=== PATIENT | male | born 1945 | race Caucasian/White ===

== ENCOUNTER 2021-11-01 04:20 | Day surgery (SDC) | payer MEDICARE, SELFPAY ==
[2021-10-22 08:49] VITALS: BMI 21.8
--- NOTE | 2021-10-22 09:09 | PC.NURSE ---
Report to the Outpatient Waiting Room, entrance under the green pavilion located off [facility], at time _0630_ on date _11/01/21_. OR Time: _0830_. - You and your visitor will be asked a series of questions to screen for COVID 19 for your protection. - Only one visitor is allowed at this time. - The patient visitor is requested to leave or wait in car when not with patient. - A mask is required within the hospital. Patients may have clear liquids (water, carbonated beverages, clear teas, apple juice) until 3 hours prior to surgery (0530 AM) with a maximum of 20 ounces. - No food from midnight until time of surgery Take the following medications with a SIP of water the morning of surgery: __NONE__ Medications to discontinue per DR. HICKS - ASPIRIN 7 DAYS PRIOR TO SURGERY, Date to take last dose 10/24/21_ Medications to discontinue per ANESTHESIA - MULTIVITAMIN, CORAL CALCIUM 3 DAYS PRIOR TO SURGERY, Date to take last dose 10/28/21_ Please no make-up, nail icelandic, hairspray, perfume, deodorant, or body powder the day of surgery. No jewelry (including any body piercings) or valuables the day of surgery, leave them at home. Please take a shower or bath the night before, or the morning of, surgery with an antibacterial soap. Wear comfortable, loose fitting clothing. - Jewelry must be removed prior to entering the operating room. Rings and piercings that are not removed may be cut off. - The hospital will not accept responsibility for valuables. - Please leave all valuables, including medications, at home the day of surgery. If you are going home after surgery, a licensed class a truck driver must drive you home. - NO public transportation without another adult. - We recommend that an adult stay with you for 24 hours following discharge. - We also recommend that you do not drive, make important decision, drink alcoholic beverages, or take any drugs that were not prescribed by your health care provider for at least 24 hours after your discharge time. Follow any additional instructions given to you from your surgeon. If you or anyone in your household have experienced Covid symptoms in the past week, please notify your surgeon or the nurse liaison at the phone number below for possible testing. Telephone instructions given to ___PT and asked if any additional questions and then verbalized understanding. Patient advised to call surgeon office or pre surgery nurse liaison [phone] if any additional questions.
[2021-11-01] VITALS (7 sets, daily range): BP systolic 127–161; BP diastolic 47–76; PULSE 77–88; RESP 14–16; TEMP 36.9–37; O2SAT 95–100
--- NOTE | ~2021-11-01 | XR_ITS ---
XR abdomen/kub 1V 11/01/2021 06:49 Indication: Preop ESWL Procedure: KUB Comparison: No prior studies for comparison. Findings: There are bilateral renal stones. No stones are identified in the expected course of ureter s. 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 There are multiple compression fractures of the lower tho racic and lumbar spine, age-indeterminate. Generalized osteopenia. Impression: 1: Bilateral nephrolithiasis. Reviewed, dictated and finalized at location A. Impression: 1: Bilateral nephrolithiasis.
--- NOTE | 2021-11-01 06:54 | WPDHPUPDATE1 ---
History and Physical Update Update Date/Time: 11/01/21 06:54 History and Physical has been reviewed, including an updated exam of the patient. There are NO changes in the patient's condition. Risks, benefits, and alternatives have been discussed and questions answered. Patient agrees to proceed with procedure.
--- NOTE | 2021-11-01 06:55 | WPDHPUPDATE1 ---
History and Physical Update Update Date/Time: 11/01/21 06:55 History and Physical has been reviewed, including an updated exam of the patient. There are NO changes in the patient's condition. Risks, benefits, and alternatives have been discussed and questions answered. Patient agrees to proceed with procedure.
[2021-11-01 07:20] LABS: Mucus Urine Rare /lpf; WBC Urine 21-30 /hpf
[2021-11-01 07:30] LABS: Add Urine Microscopic? YES; Appearance Urine Clear (Clear); Bilirubin Urine Negative (Negative); Blood Urine Trace-lysed (Negative); Color Urine Yellow (Yellow); Glucose Urine UA Negative (Negative); Ketones Urine Negative (Negative); Leukocyte Esterase Ur 2+ LEU/UL (Negative); Nitrate Urine Negative (Negative); Protein Urine 1+ mg/dL (Negative); Specific Grav Ur 1.015 (1.001-1.035); Urobilinogen Urine 0.2 mg/dL (<2.0)
[2021-11-01] MEDS: LACTATED RINGERS 1,000 ML 30 ML IV CONT (07:39)
[2021-11-01 07:46] LABS: Glucose Point of Care 104 mg/dl (65-105)
--- NOTE | 2021-11-01 08:19 | WPDANESEPPF ---
Anes - Initial Pre Proc Eval Procedure: Operation Date: 11/01/21 08:30 Proposed Procedures p Left Extracorporeal Shock Wave Lithotripsy - Alin Diallo MD Date/Time: 11/01/21 08:19 Surgeon: Alin Diallo MD Pre Op Diagnosis: Lt Renal Stone Patient Data Age: 76 Gender: M Height: 1.68 m Weight: 54.8 kg Last Vital Signs Temp 36.9 C 11/01/21 07:47 Pulse 88 11/01/21 07:47 Resp 16 11/01/21 07:47 BP 127/64 11/01/21 07:47 Pulse Ox 100 11/01/21 07:47 O2 Del Method Room Air 11/01/21 07:47 Allergies Allergy/AdvReac Type Severity Reaction Status Date / Time codeine AdvReac STOMACH Verified 11/01/21 07:18 PAIN - NO N/V morphine AdvReac STOMACH Verified 11/01/21 07:18 PAIN - NO N/V Sulfa (Sulfonamide AdvReac Hives Verified 11/01/21 07:18 Antibiotics) Home Medications Medication Instructions Recorded Confirmed Type aspirin 81 mg tablet,delayed 81 mg QA 10/22/21 11/01/21 History release calcium carb-vit D3-magnesium 250 1 cap [facility] 10/22/21 11/01/21 History mg-200 unit-125 mg capsule glimepiride 1 mg tablet 1 tablet 10/22/21 11/01/21 History multivitamin 1 tablet QA 10/22/21 11/01/21 History oxycodone-acetaminophen 5 mg-325 1 tablet TID PRN Pain 10/22/21 11/01/21 History mg tablet pantoprazole 40 mg tablet,delayed 1 tablet PO 10/22/21 11/01/21 History release rosuvastatin 10 mg tablet 1 tablet 10/22/21 11/01/21 History Laboratory Tests 11/01/21 11/01/21 07:02 07:44 POC Capillary Glucose 104 mg/dl mg/dl (65-105) Urine Color Yellow (Yellow) Urine Appearance Clear (Clear) Urine pH 7.0 (5.0-9.0) Ur Specific [place] 1.015 (1.001-1.035) Urine Protein 1+ mg/dL H mg/dL (Negative) Urine Glucose (UA) Negative mg/dL mg/dL (Negative) Urine Ketones Negative mg/dL mg/dL (Negative) Ur Blood (Man) Trace-lysed (Negative) Urine Nitrate Negative (Negative) Urine Bilirubin Negative (Negative) Urine Urobilinogen 0.2 mg/dL mg/dL (<2.0) Leukocyte Esterase Rfl 2+ MIAH/UL H MIAH/UL (Negative) Urine RBC 3-5 /hpf H /hpf (0-2) Urine WBC 21-30 /hpf H /hpf Urine Mucus Rare /lpf /lpf Patient hx anesthesia problems: none Family hx anesthesia problems: none Results Review: All pre-operative results and documents have been reviewed as part of the pre-operative evaluation. [facility] Past Medical History Medical History Chronic pain syndrome Diabetes Hyperlipidemia Social History Social History Smoking packs per day: 1.5 Smoking cigarettes per day: 30.0 Years smoked: 50 Smoking pack-years: 75.00 Smoking status: Current every day smoker Tobacco type: cigarettes Second hand tobacco smoke exposure: Yes Alcohol intake: never Substance use: never Substance use type: does not use Living arrangements: with family Additional living arrangements comments: CURRENTLY SISTER IN LAW IS LIVING WITH PT Spiritual care concerns: No Anes - Eval Final PreProcedure Day of Procedure 11/01/21 08:19 Patient weight: normal Heart: regular rate and rhythm Lungs: decreased breath sounds Airway: Mallampati scale class III Neurological: other (alert) Last oral intake: >/= 8 hours ASA classification: III Emergent: no Anesthetic plan: proceed Anesthesia type and monitoring: general LMA and standard monitoring Results Review: All pre-operative results and documents have been reviewed as part of the pre-operative evaluation. Informed Consent: The patient's anesthetic plan and its attendant risks and benefits were discussed with the patient/family/POA. Questions were solicited and answers provided to the satisfaction of the patient/family/POA.
[2021-11-01 08:52] LABS: INR 1.1; Prothrombin Time 13.4 Seconds (11.1-14.7)
[2021-11-01 08:53] LABS: Partial Thromboplastin Time 30.4 SECONDS (22.3-36.8)
--- NOTE | 2021-11-01 09:25 | PM.HPGS ---
History of Present Illness History of Present Illness Consent: Risks, benefits, and alternatives have been discussed and questions answered. Patient agrees to proceed with procedure. Chief complaint: Lt Renal Stone Narrative: Hank Gaytan is a 76 year old male with intermittent left flank pain x2-weeks. Imaging shows painful obstructing left 8-9mm UPJ stone. After discussion he elects for left ESWL. He's aware of risk including, but not limited to, residual stone fragments, perinephric hematoma. Review of Systems Cardiovascular: Cardiovascular: Denies chest pain, Denies lightheadedness, Denies palpitations and Denies dyspnea Respiratory: Respiratory: Denies dyspnea Gastrointestinal: Gastrointestinal: Denies diarrhea, Denies nausea and Denies vomiting Genitourinary: Genitourinary: Denies hematuria and Denies dysuria Endocrine: Endocrine: Denies palpitations PMFSH Past Medical History Medical History Chronic pain syndrome Diabetes Hyperlipidemia Social History Social History Smoking packs per day: 1.5 Smoking cigarettes per day: 30.0 Years smoked: 50 Smoking pack-years: 75.00 Smoking status: Current every day smoker Tobacco type: cigarettes Second hand tobacco smoke exposure: Yes Alcohol intake: never Substance use: never Substance use type: does not use Living arrangements: with family Additional living arrangements comments: CURRENTLY SISTER IN LAW IS LIVING WITH PT Spiritual care concerns: No Meds Home Medications and Allergies Home Medications Medication Instructions Recorded Confirmed Type aspirin 81 mg tablet,delayed 81 mg QA 10/22/21 11/01/21 History release calcium carb-vit D3-magnesium 250 1 cap [facility] 10/22/21 11/01/21 History mg-200 unit-125 mg capsule glimepiride 1 mg tablet 1 tablet HS 10/22/21 11/01/21 History multivitamin 1 tablet QAM 10/22/21 11/01/21 History oxycodone-acetaminophen 5 mg-325 1 tablet TID PRN Pain 10/22/21 11/01/21 History mg tablet pantoprazole 40 mg tablet,delayed 1 tablet PO HS 10/22/21 11/01/21 History release rosuvastatin 10 mg tablet 1 tablet HS 10/22/21 11/01/21 History Allergies Allergy/AdvReac Type Severity Reaction Status Date / Time codeine AdvReac STOMACH Verified 11/01/21 07:18 PAIN - NO N/V morphine AdvReac STOMACH Verified 11/01/21 07:18 PAIN - NO N/V Sulfa (Sulfonamide AdvReac Hives Verified 11/01/21 07:18 Antibiotics) Vital Signs Vital Signs - 24 hr 11/01/21 07:47 Temperature 98.4 F Pulse Rate 88 Respiratory Rate 16 Blood Pressure 127/64 Pulse Oximetry 100 Oxygen Delivery Room Air Exam Const: General: no acute distress Resp: Effort & Inspection: normal respiratory effort GI: Inspection: non-distended GI Palp: No abdominal tenderness and No Guarding due to palpation present (GI) Auscultation: normal bowel sounds Assessment and Plan Assessment and plan (1) Obstruction of left ureteropelvic junction (UPJ) due to stone: Code(s): N20.1 - Calculus of ureter Status: Acute Assessment and Plan: Left ESWL
[2021-11-01] MEDS: ceFAZolin 2 GM/D5W 50 ML 2 GM/50 ML BAG IVPB (09:29)
--- NOTE | 2021-11-01 09:57 | W.PM.PROC2 ---
Procedure Note - Detailed Date of Procedure 11/01/21 Pre-op Diagnosis Lt Renal Stone Post-op Diagnosis Same Procedure Performed Left ESWL Surgeon Alin Diallo MD Description of Procedure The patient was brought to the operative suite where he was placed in the supine position on the Dornier lithotripsy table. The focal point of the lithotripter was placed at a 6-7mm left UPJ calculus. A total of 2500 shocks were delivered at a power setting of 4. There appeared to be good fragmentation of the stone. The patient tolerated the procedure well and was taken to the recovery room in good condition. Drains No Pathology None sent Complications No immediate complications Condition Stable Disposition PACU
[2021-11-01 10:20] LABS: Glucose Point of Care 116 mg/dl (65-105)
[2021-11-01] MEDS: ONDANSETRON INJ 4 MG/2 ML VIAL IV PUSH (10:44)
== END 2021-11-01 12:05 | disposition home or self-care (01) ==
PROVIDERS: Visit Provider Urology
PROC: (CPT 50590; principal; 2021-11-01 08:30)
DX: N20.0 Calculus of kidney (principal); E11.9 Type 2 diabetes mellitus without complications; E78.5 Hyperlipidemia, unspecified; G89.4 Chronic pain syndrome; Z87.891 Personal history of nicotine dependence; Z79.82 Long term (current) use of aspirin; Z79.899 Other long term (current) drug therapy
CPT/HCPCS: 50590; 36415; 74018; 81001; 82948; 85610; 85730; 87086; 87088; J0690; J2405; J2704; J3010; J7120